=== PATIENT | male | born 1975 | race Caucasian/White ===

== ENCOUNTER 2017-03-26 19:52 | Emergency (ER) | payer BC ==
[2017-03-26 20:16] VITALS: BP 120/80
--- NOTE | 2017-03-28 10:57 | ER ---
DATE SEEN: 03/26/2017 REASON FOR VISIT: Bleeding wound. HISTORY OF PRESENT ILLNESS: This is a 41-year-old male, whom I saw in the clinic earlier today. I did an excision of a lipoma on the lower back. He presented to the ER pale and nauseous after he experienced some bleeding from the wound. The family tried to stop it with pressure with no success. REVIEW OF SYSTEMS: He complains of no chest pain. No shortness of breath. ALLERGIES: None. PHYSICAL EXAMINATION: GENERAL: Not in distress. VITAL SIGNS: Blood pressure is normal. He is afebrile. His pulse is 67. MUSCULOSKELETAL: Lower back wound appeared to have a large hematoma that is fluctuant, but no active bleeding. IMPRESSION: Hematoma. PLAN: Ice pack was placed and a compressive dressing placed after that. The patient was discharged home. He was advised to remain supine, drink fluids, and rest. A note was given to miss work tomorrow. Time seen was 2000 hours. /[id number] CARLOS/CORBIN
== END 2017-03-26 20:25 | disposition home or self-care (01) ==
LOC: FB.ED 19:52
DX: S30.0XXD Contusion of lower back and pelvis, subsequent encounter (principal); X58.XXXD Exposure to other specified factors, subsequent encounter
CPT/HCPCS: 16020; 99282

== ENCOUNTER 2019-02-18 09:57 | Emergency (ER) | payer BC ==
[2019-02-18] MEDS ORDERED: Ibuprofen 600 MG Tab PO ONE (11:47)
--- NOTE | 2019-02-18 11:48 | EDM.PDOC ---
ED HPI GENERAL MEDICAL PROBLEM - General Chief Complaint: Upper Extremity Injury/Pain Stated Complaint: R SHOULDER PAIN Time Seen by Provider: 02/18/19 10:03 Source of Information: Reports: Patient, Family History Limitations: Reports: No Limitations - History of Present Illness INITIAL COMMENTS - FREE TEXT/NARRATIVE: 43 y.o.w.m came to the ed shortly after he fell at home from a ladder onto his right shoulder. He has limited ROM due to pain at his right AC joint. No other acute medial issues. BP 145/97 RR 18 Pulse ox 97% on RA Temp 36.7 Pulse 105 Onset Date: 02/17/19 Onset Time: 23:00 Duration: Hour(s): Location: Reports: Upper Extremity, Right Quality: Reports: Ache, Dull Severity: Moderate Improves with: Reports: Rest Worsens with: Reports: Movement Context: Reports: Trauma (fall rigtht shoulder) Associated Symptoms: Reports: No Other Symptoms R shoulder Pain Score (Numeric/FACES): 8 - Related Data Allergies Allergy/AdvReac Type Severity Reaction Status Date / Time No Known Allergies Allergy Verified 02/18/19 10:06 Home Meds: Home Meds Venlafaxine HCl [Venlafaxine ER] 1 tab PO BEDTIME 10/14/15 [History] traZODone 100 mg PO BEDTIME 10/14/15 [History] Ibuprofen [Motrin] 600 mg PO TID PRN #30 tab 10/15/15 [Rx] Venlafaxine HCl [Venlafaxine ER] 75 mg PO BEDTIME 03/26/17 [History] Past Medical History Cardiovascular History: Reports: High Cholesterol, Hypertension Musculoskeletal History: Reports: Fracture Other Musculoskeletal History: hx fx R ankle, Psychiatric History: Reports: Anxiety, Dementia Dermatologic History: Reports: Other (See Below) Other Dermatologic History: lipoma - Past Surgical History Head Surgeries/Procedures: Reports: None HEENT Surgical History: Reports: Oral Surgery Musculoskeletal Surgical History: Reports: None Dermatological Surgical History: Reports: Other (See Below) Social & Family History - Family History Family Medical History: Noncontributory - Tobacco Use Smoking Status *Q: Current Every Day Smoker Years of Tobacco use: 20 Packs/Tins Daily: 0.5 - Caffeine Use Caffeine Use: Reports: Soda - Alcohol Use Days Per Week of Alcohol Use: 2 Number of Drinks Per Day: 7 Total Drinks Per Week: 14 - Recreational Drug Use Recreational Drug Use: No Review of Systems - Review of Systems Review Of Systems: See Below Constitutional: Reports: No Symptoms Eyes: Reports: No Symptoms Ears: Reports: No Symptoms Nose: Reports: No Symptoms Mouth/Throat: Reports: No Symptoms Respiratory: Reports: No Symptoms Cardiovascular: Reports: No Symptoms GI/Abdominal: Reports: No Symptoms Genitourinary: Reports: No Symptoms Musculoskeletal: Reports: Shoulder Pain Skin: Reports: No Symptoms Neurological: Reports: No Symptoms Psychiatric: Reports: No Symptoms ED EXAM, GENERAL - Physical Exam Exam: See Below Exam Limited By: No Limitations General Appearance: Alert, WD/WN, Mild Distress Eye Exam: Bilateral Eye: Normal Inspection Ears: Normal External Exam Ear Exam: Bilateral Ear: Auricle Normal Nose: Normal Inspection, Normal Mucosa, No Blood Throat/Mouth: Normal Inspection, Normal Lips, Normal Voice, No Airway Compromise Head: Atraumatic, Normocephalic Neck: Normal Inspection, Supple, Non-Tender, Full Range of Motion Respiratory/Chest: No Respiratory Distress, Lungs Clear, Normal Breath Sounds, Chest Non-Tender Cardiovascular: Normal Peripheral Pulses, Regular Rate, Rhythm, No Edema, No Gallop, No Rub GI/Abdominal: Normal Bowel Sounds, Soft, Non-Tender, No Organomegaly, No Abnormal Bruit, No Mass, Pelvis Stable (Male) Exam: Deferred Rectal (Males) Exam: Deferred Back Exam: Normal Inspection, Full Range of Motion Extremities: Normal Inspection, Normal Range of Motion, Non-Tender Neurological: Alert, Oriented, CN II-XII Intact, Normal Cognition, Normal Gait Psychiatric: Normal Affect, Normal Mood Skin Exam: Warm, Dry, Intact, Normal Color Lymphatic: No Adenopathy Course - Vital Signs Text/Narrative:: 43 y.o.w.m came to the ed shortly after he fell at home from a ladder onto his right shoulder. He has limited ROM due to pain at his right AC joint. No other acute medial issues. BP 145/97 RR 18 Pulse ox 97% on RA Temp 36.7 Pulse 105 PE: WNWD W M with tenderness r AC joint Imagong: Right shoulder AC separation typ 1, official report is pending Impression: AC separation right shoulder Tx: Motrin, ICE, arm sling Reeam: Improved Plan: D/C with instructions Last Recorded V/S: Last Vital Signs Temp 36.8 C 05/24/19 10:03 Pulse 105 H 02/18/19 10:03 Resp 18 02/18/19 10:03 BP 145/97 H 02/18/19 10:03 Pulse Ox 97 02/18/19 10:03 - Orders/Labs/Meds Orders: Active Orders 24 hr Category Date Time Status Shoulder Comp Rt [CR] Stat Exams 02/18/19 10:14 Taken Meds: Medications Discontinued Medications Generic Name Dose Route Start Last Admin Trade Name Hernesto PRN Reason Stop Dose Admin Ibuprofen 600 mg 02/18/19 11:47 02/18/19 12:14 Motrin PO 02/18/19 11:48 600 mg ONETIME ONE Administration Departure - Departure Time of Disposition: 11:44 Disposition: Home, Self-Care 01 Condition: Good Clinical Impression: Acromioclavicular separation, type 1 Qualifiers: Encounter type: initial encounter Laterality: right Qualified Code(s): S43.101A - Unspecified dislocation of right acromioclavicular joint, initial encounter - Discharge Information Instructions: Acromioclavicular Separation, Ibuprofen tablets and capsules Referrals: Jostin Robins MD [Primary Care Provider] - Forms: ED Department Discharge Additional Instructions: Arm sling, ICE and Motrin for pain, please follow up with your regular MD in 1 week if pain continues, Please come back f your symptoms get worse acutely - My Orders Last 24 Hours: My Active Orders 02/18/19 10:14 Shoulder Comp Rt [CR] Stat - Assessment/Plan Last 24 Hours: My Active Orders 02/18/19 10:14 Shoulder Comp Rt [CR] Stat
--- NOTE | 2019-02-18 14:07 | CR ---
INDICATION: Six-foot fall from ladder onto shoulder with pain. RIGHT SHOULDER: Three views of the right shoulder revealed very minimal degenerative change at the AC joint. A minimal degree of strain could be present with slight cephalad deviation of the distal left clavicle with respect to the AC joint. Otherwise, no evidence of an acute fracture or dislocation was identified with the glenohumeral joint appearing intact. No visible scapular fracture was seen. An old healed fracture of the posterolateral aspect of the right 4th rib is noted. There is also a deformity at the anterolateral aspect of the 2nd right rib, compatible with a healed rib fracture. IMPRESSION: Cannot exclude a minimal degree of AC joint strain. MTDD
[2019-02-18 14:18] VITALS: BP 139/100
== END 2019-02-18 12:21 | disposition home or self-care (01) ==
LOC: FB.ED 09:57
DX: S43.101A Unspecified dislocation of right acromioclavicular joint, initial encounter (principal); I10 Essential (primary) hypertension; E78.00 Pure hypercholesterolemia, unspecified; F17.210 Nicotine dependence, cigarettes, uncomplicated; Z79.899 Other long term (current) drug therapy; W19.XXXA Unspecified fall, initial encounter; Y92.009 Unspecified place in unspecified non-institutional (private) residence as the place of occurrence of the external cause
CPT/HCPCS: 73030; 99283; A9270

== ENCOUNTER 2022-10-22 08:10 | Day surgery (SDC) | payer BC ==
[2022-10-22] MEDS ORDERED: Propofol 200 MG/20 ML SDV IV ONE (08:11)
[2022-10-22] MEDS ORDERED: Ketamine 500 mg/10 ML MDV IV ONE (08:11)
[2022-10-22] MEDS ORDERED: Midazolam 1 MG/ML 2 ML SDV IV ONE (08:11)
[2022-10-22] MEDS ORDERED: Sodium Chloride 0.9% 10 ML Syringe FLUSH PRN (08:30)
[2022-10-22] MEDS ORDERED: Lactated Ringers 1,000 ML IV SCH (08:30)
[2022-10-22] MEDS ORDERED: Simethicone Drops 40 MG/0.6 ML 30 ML Bottle PO ONE (10:52)
[2022-10-22 12:12] VITALS: BP 126/86; PULSE 75
== END 2022-10-22 11:53 | disposition home or self-care (01) ==
LOC: FB.SDS 08:10
PROVIDERS: ATTEND Surgery
DX: D12.0 Benign neoplasm of cecum (principal); F17.210 Nicotine dependence, cigarettes, uncomplicated; Z79.899 Other long term (current) drug therapy; Z88.8 Allergy status to other drugs, medicaments and biological substances; Z98.890 Other specified postprocedural states
CPT/HCPCS: 00812-QZ; 88305; A9270-GY; J2250; J2704; J3490; J7120